=== PATIENT | male | born 1985 | race African-American/Black ===

== ENCOUNTER 2016-07-25 22:13 | Emergency (ER) | payer SELFPAY ==
[2016-07-25 22:18] VITALS: BP 132/85
[2016-07-25] MEDS ORDERED: HYDROCODONE/ACETAMINOPHEN 5-325 MG 6 TAB/DSPK PO PRN (23:38)
[2016-07-25] MEDS ORDERED: PENICILLIN V POTASSIUM 500 MG TABLET PO ONE (23:38)
--- NOTE | 2016-07-25 23:41 | ER Document Report ---
HPI - HPI Patient complains to provider of: tooth pain, facial swelling Pain Level: 4 Context: Patient is a 31-year-old male that comes emergency department for chief complaint of dental pain with swelling to the right upper part of his jaw, patient states he has known teeth that need to be repaired but he does not have dental insurance, he states swelling started and pain increased today. He denies neck pain, sore throat, fever, difficulty swallowing. He denies any daily medications or any past medical history. - DERM Skin Color: Normal Past Medical History - General Information source: Patient - Social History Smoking Status: Current Every Day Smoker Frequency of alcohol use: Occasional Drug Abuse: None Lives with: Alone Family History: Reviewed & Not Pertinent Patient has suicidal ideation: No Patient has homicidal ideation: No - Medical History Medical History: Negative Renal/ Medical History: Denies: Hx Peritoneal Dialysis Surgical Hx: Negative - Immunizations Hx Diphtheria, Pertussis, Tetanus Vaccination: Yes Vertical Provider Document - CONSTITUTIONAL General Appearance: WD/WN, No Apparent Distress - INFECTION CONTROL TRAVEL OUTSIDE OF THE [place] IN LAST 30 DAYS: No - HEENT HEENT: Atraumatic, Normocephalic Mouth Diagram: 1 - Dental decay with multiple caries and mildly erythematous gumline - RESPIRATORY Respiratory: Breath Sounds Normal, No Respiratory Distress O2 Sat by Pulse Oximetry: 98 - GI/ABDOMEN Gastrointestinal: Abdomen Soft, Abdomen Non-Tender - BACK Back: Normal Inspection - MUSCULOSKELETAL/EXTREMETIES Musculoskeletal/Extremeties: MAEW, FROM, Non-Tender - NEURO Level of Consciousness: Awake, Alert, Appropriate - DERM Integumentary: Warm, Dry, No Rash Course - Vital Signs Vital signs: Temp Pulse Resp BP Pulse Ox 98.1 F 66 16 132/85 H 98 07/25/16 22:16 07/25/16 22:16 07/25/16 22:16 07/25/16 22:16 07/25/16 22:16 Discharge - Discharge Clinical Impression: Pain, dental, Tooth infection Condition: Stable Disposition: HOME, SELF-CARE Additional Instructions: Your examination is consistent with a dental infection, please take the penicillin antibiotic as directed to completion, take the pain medication if needed. Follow-up with the dentist using the list to prevent this from occurring again. Return the emergency department for any concerning or worsening symptoms including increased swelling. Prescriptions: Hydrocodone/Acetaminophen [[place] 5-325 mg Tablet] 1 - 2 tab PO ASDIR #15 tablet Penicillin V Potassium [Penicillin Vk 500 mg Tablet] 500 mg PO BID #20 tablet Forms: Return to Work
== END 2016-07-26 | disposition home or self-care (01) ==
LOC: ER 22:13
DX: K04.7 Periapical abscess without sinus (principal); K08.89 Other specified disorders of teeth and supporting structures; R22.0 Localized swelling, mass and lump, head; R68.84 Jaw pain; F17.210 Nicotine dependence, cigarettes, uncomplicated
CPT/HCPCS: 99282